=== PATIENT | male | born 1960 | race African-American/Black ===

== ENCOUNTER 2016-11-09 18:20 | Emergency (ER) | payer MEDICAID ==
[~2016-11-09] VITALS: Ht 188 cm; Wt 100.0 kg
[~2016-11-09 18:20] MED LIST: BENZ1CAP34 PO; ZITH250T PO; ZOFR4TAB3 SL
[2016-11-09 18:22] VITALS: BP 100/71; PULSE 109; RESP 14; TEMP 98; O2SAT 98
== END 2016-11-09 21:26 | disposition left against medical advice (07) ==
LOC: NED 18:20
DX: R21 Rash and other nonspecific skin eruption (principal)
CPT/HCPCS: 99281